=== PATIENT | female | born 2000 | race Caucasian/White ===

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

== ENCOUNTER 2024-02-09 03:50 | Emergency (ER) | payer OTHER ==
[~2024-02-09] VITALS: Ht 154.9 cm; Wt 52.2 kg
[2024-02-09 04:01] VITALS: BP 150/119; PULSE 116; RESP 16; TEMP 97.3; O2SAT 99
[2024-02-09 05:15] VITALS: BP 150/119; PULSE 116; RESP 16; TEMP 97.3; O2SAT 99
== END 2024-02-09 05:14 | disposition home or self-care (01) ==
LOC: MED 03:50
DX: S40.022A Contusion of left upper arm, initial encounter (principal); S09.93XA Unspecified injury of face, initial encounter; Z02.89 Encounter for other administrative examinations; Z88.1 Allergy status to other antibiotic agents; X58.XXXA Exposure to other specified factors, initial encounter; Y93.89 Activity, other specified; Y92.89 Other specified places as the place of occurrence of the external cause; Y99.8 Other external cause status
CPT/HCPCS: 99281; 99283

== ENCOUNTER 2024-05-30 02:37 | Emergency (ER) | payer OTHER ==
[~2024-05-30] VITALS: Ht 154.9 cm; Wt 61.2 kg
[2024-05-30 02:39] VITALS: BP 114/80; PULSE 64; RESP 16; TEMP 208.8; TEMP 98.2; O2SAT 98
[2024-05-30 02:55] VITALS: O2SAT 98
[2024-05-30] MEDS: ONDANSETRON 4 MG ODT PO ONE (02:55)
[2024-05-30] MEDS: NACL 0.9% 500 ML IV ONE (04:04)
[2024-05-30] MEDS ORDERED: ONDA-188 SL (04:16)
[2024-05-30] MEDS ORDERED: ACET-10509 PO (04:16)
== END 2024-05-30 04:48 | disposition home or self-care (01) ==
LOC: MED 02:37
DX: O99.891 Other specified diseases and conditions complicating pregnancy (principal); A05.9 Bacterial foodborne intoxication, unspecified; Z3A.14 14 weeks gestation of pregnancy; Z79.1 Long term (current) use of non-steroidal anti-inflammatories (NSAID); Z88.1 Allergy status to other antibiotic agents
CPT/HCPCS: 81025; 96360; 99283; J7030; Q0162